=== PATIENT | female | born 1965 | race Two or more races ===

== ENCOUNTER 2018-12-03 13:29 | Emergency (ER) | payer MEDICAID ==
[~2018-12-03] VITALS: Ht 175.3 cm; Wt 61.7 kg
[2018-12-03 14:04] VITALS: BP 114/71
[2018-12-03] MEDS ORDERED: LIDOCAINE 2% (LOCAL ANESTH.) PF 5ml SDV ONE (14:53)
[2018-12-03] MEDS ORDERED: cefTRIAXone SOD 1,000 MG VL ONE (14:53)
[2018-12-03] MEDS ORDERED: cefTRIAXone W LIDOCAINE 500 MG IM IM ONE (15:00)
[2018-12-03] MEDS ORDERED: TETANUS-DIPTH-ACEL PERTUSSIS 0.5ML SYRG IM ONE (15:00)
== END 2018-12-03 15:45 | disposition home or self-care (01) ==
LOC: ER 13:41
DX: L03.116 Cellulitis of left lower limb (principal); J45.909 Unspecified asthma, uncomplicated; Z90.710 Acquired absence of both cervix and uterus
CPT/HCPCS: 90471; 90715; 96372; 99283; J0696; J2001